=== PATIENT | male | born 1970 | race Caucasian/White ===

== ENCOUNTER 2021-08-24 10:26 | Emergency (ER) | payer MEDICARE, OTHER, SELFPAY ==
--- NOTE | ~2021-08-24 | CT_ITS ---
EXAMINATION: CT HEAD WITHOUT CONTRAST CT CERVICAL SPINE WITHOUT CONTRAST CLINICAL INFORMATION: Head trauma. Seizure. Syncope. COMPARISON: None TECHNIQUE: Contiguous axial imaging was performed from the skull base to vertex without intravenous administration of contrast. Contiguous axial CT images of the cervical spine were obtained without contrast. Sagittal and coronal reformats were provided and reviewed. This CT examination was performed using dose optimization techniques as appropriate, variously including the following: *Automated exposure control *Adjustment of mA and/or kV according to patient size (this includes techniques or standardized protocols for targeted exams where dose is matched to indication/reason for exam; i.e. extremities or head) *Use of iterative reconstruction technique DLP: 1427 mGy-cm FINDINGS: HEAD: There is no evidence of acute intracranial hemorrhage or territorial infarction. No abnormal mass effect or midline shift is seen. Aguilar to white matter differentiation is well preserved. No extra-axial fluid collections are identified. The ventricles are normal in size. There is no abnormal attenuation within the brain parenchyma. Multiple periapical lucencies seen at the maxilla, consistent with periapical abscesses. Otherwise, the visualized osseous structures and soft tissues are unremarkable. The mastoid air cells and visualized portions of the paranasal sinuses are well aerated. CERVICAL SPINE: Straightening of the normal cervical lordosis, which is likely positional. No acute fracture or subluxation. No loss of vertebral body height. Mild loss of intervertebral disc height with anterior endplate osteophytes at C5-C6 and C6-C7. Mild multilevel bilateral facet arthropathy. No lytic or blastic osseous lesion. Unremarkable prevertebral soft tissues. No abnormal soft tissue mass or fluid collection. Thyroid within normal limits. Visualized lung apices are clear. Mild bilateral neural foraminal stenosis at C6-C7. CT/CT cervical spine wo con IMPRESSION: HEAD: No acute intracranial hemorrhage or mass effect. Multiple periapical dental abscesses along the maxilla. CERVICAL SPINE: No acute fracture or subluxation. Degenerative disc disease at C5-C6 and C6-C7 with bilateral neural foraminal stenosis at C6-C7.
[2021-08-24 10:46] VITALS: BP 105/75; PULSE 88; RESP 16; TEMP 36.8; O2SAT 96; BMI 25.8
--- NOTE | 2021-08-24 11:27 | ED.FALL ---
HPI - Fall General Chief Complaint: Fall Stated Complaint: FALL,HIT HEAD,? SZ PER POLICE ON SCENE Time Seen by Provider: 08/24/21 11:27 Source: patient Mode of arrival: EMS Limitations: no limitations History of Present Illness HPI Narrative: Patient found on ground with possible seizure. Patient states he does not drink alcohol. He denies seizure history. Patient states he went to lie down, not sure how he got his facial injuries Onset (ago): minute(s) Fall witnessed: yes, by bystander Place fall occurred: street Loss of consciousness: yes Symptoms prior to fall: lightheadedness Location of injury: head and face Related Data Home Medications Medication Instructions Recorded Confirmed No Known Home Meds 08/24/21 08/24/21 Allergies Allergy/AdvReac Type Severity Reaction Status Date / Time paliperidone [From Invega] AdvReac Mild Agitated Verified 08/24/21 11:32 ziprasidone [From Geodon] AdvReac Mild Agitated Verified 08/24/21 11:32 Review of Systems Constitutional: Constitutional: Reports no additional constitutional complaints Eyes: Eyes: Reports no additional eye complaints ENT: Denies dizziness Cardiovascular: Cardiovascular: Reports no additional cardiovascular complaints Respiratory: Respiratory: Reports as per HPI Gastrointestinal: Gastrointestinal: Reports no additional gastrointestinal complaints Musculoskeletal: Musculoskeletal: Reports no additional musculoskeletal complaints Integumentary/Breasts: Skin/Breast: Denies rash Neurologic: Denies dizziness and Denies Sensory deficit (Neuro) Psychiatric: Psychiatric: Denies anxiety [facility] Social History Social History Alcohol intake: current Advance Directives: No Physical Exam Vital Signs: Vital Signs: Last Vital Signs Temp 98.3 F 08/24/21 10:46 Pulse 88 08/24/21 10:46 Resp 16 08/24/21 10:46 BP 105/75 08/24/21 10:46 Pulse Ox 96 08/24/21 10:46 Body Mass Index 25.8 Const: Other: slightly unkept, abrasions to face and head, small occipital hematoma Nutritional Appearance: average body habitus Orientation/consciousness: oriented to person and patient oriented x3 Limitations: no limitations HENMT: Head: Yes normal to inspection Ears: external ears normal General nose exam: Normal external nose present Mouth: Normal oral and palatal mucosa present and oropharynx normal Throat: Yes posterior oropharynx normal Eyes: General: appearance normal, both eyes and all related structures Neck: Other: supple Neck: Yes normal visual inspection Chest: Chest palpation & inspection: normal inspection of the chest Resp: Auscultation: clear to auscultation bilaterally Cardio: Jugular venous distension: no JVD Rate: regular rate Rhythm: regular rhythm Heart sounds: S1 normal heart sound present and S2 normal heart sound present GI: Inspection: Yes normal to inspection Palpation (GI): Soft to palpation, nontender and No hepatosplenomegaly present Auscultation: normal bowel sounds : General: Yes no CVA tenderness Back/Spine/Pelvis: Back: no CVA tenderness Skin: General skin exam: no rashes or lesions noted Neuro: General: oriented to person and patient oriented x3 Cranial nerves: Yes CN's II-XII intact bilaterally Motor exam (neuro): 5/5 motor strength present throughout Sensory Exam: No Sensory deficit (Neuro) Extrem: General: Yes normal to inspection Psych: Appearance: grossly normal Course Reevaluation(s) Reevaluation #1: no further seizure activity, likely first time seizure will not start on seizure medication at this time Time: 13:41 - Fall Lab Data Result diagrams: 08/24/21 12:04 08/24/21 12:04 Labs: Lab Results 08/24/21 08/24/21 08/24/21 Range/Units 12:04 12:04 12:04 WBC 8.7 (4.8-10.8) X10*3/uL RBC 4.98 (4.60-5.80) X10*6/uL Hgb 16.8 (14.0-18.0) g/dl Hct 47.2 (42-52) % MCV 94.8 (80-98) fL MCH 33.7 H (27.0-33.0) pg MCHC 35.6 (31.0-36.0) g/dl RDW 15.2 (11.0-16.0) % Plt Count 157 L (160-400) X10*3/uL MPV 11.4 (9.4-12.4) fL Immature Gran % (Auto) 0.5 H (0.0-0.4) % Neut % (Auto) 78.2 H (45-73) % Lymph % (Auto) 10.9 L (20-40) % [place] % (Auto) 8.9 (2-11) % Eos % (Auto) 0.6 (0-4) % Baso % (Auto) 0.9 (0-2) % Lymph # (Auto) 1.0 L (1.2-4.9) X10*3/uL [place] # (Auto) 0.8 (0.1-1.2) X10*3/uL Eos # (Auto) 0.1 (0.0-0.4) X10*3/uL Baso # (Auto) 0.1 (0.0-0.2) X10*3/uL Abs Immat Gran (auto) 0.04 H (0.00-0.03) X10*3/uL Absolute Neuts (auto) 6.8 (2.0-8.3) X10*3/uL Absolute Nucleated RBC 0.000 (0.0-0.012) X10*3/uL Nucleated RBC % (auto) 0.0 (0.0-0.2) /100WBC Sodium 133 L (135-145) mmol/L Potassium 3.9 (3.3-5.1) mmol/L Chloride 98 (96-108) mmol/L Carbon Dioxide 25 (22-29) mmol/L Anion Gap 14 (12-20) BUN 10 (9-16) mg/dL Creatinine 1.15 (0.5-1.4) mg/dL Estim Creat Clear Calc 77.5 Estimated GFR > 60 Random Glucose 107 (60-115) mg/dL Calcium 9.6 (8.4-10.2) mg/dL Total Bilirubin 1.1 H (0.0-1.0) mg/dL Direct Bilirubin 0.5 (0.0-0.5) mg/dL AST 37 (5-37) U/L ALT 25 (0-40) U/L Alkaline Phosphatase 89 (39-117) U/L Troponin I High Sens 4.6 (<3.5-35.0) ng/L Total Protein 6.9 (6.5-8.0) g/dL Albumin 4.0 (3.5-5.0) g/dL Ethyl Alcohol mg/dL 08/24/21 Range/Units 12:04 WBC (4.8-10.8) X10*3/uL RBC (4.60-5.80) X10*6/uL Hgb (14.0-18.0) g/dl Hct (42-52) % MCV (80-98) fL MCH (27.0-33.0) pg MCHC (31.0-36.0) g/dl RDW (11.0-16.0) % Plt Count (160-400) X10*3/uL MPV (9.4-12.4) fL Immature Gran % (Auto) (0.0-0.4) % Neut % (Auto) (45-73) % Lymph % (Auto) (20-40) % [place] % (Auto) (2-11) % Eos % (Auto) (0-4) % Baso % (Auto) (0-2) % Lymph # (Auto) (1.2-4.9) X10*3/uL [place] # (Auto) (0.1-1.2) X10*3/uL Eos # (Auto) (0.0-0.4) X10*3/uL Baso # (Auto) (0.0-0.2) X10*3/uL Abs Immat Gran (auto) (0.00-0.03) X10*3/uL Absolute Neuts (auto) (2.0-8.3) X10*3/uL Absolute Nucleated RBC (0.0-0.012) X10*3/uL Nucleated RBC % (auto) (0.0-0.2) /100WBC Sodium (135-145) mmol/L Potassium (3.3-5.1) mmol/L Chloride (96-108) mmol/L Carbon Dioxide (22-29) mmol/L Anion Gap (12-20) BUN (9-16) mg/dL Creatinine (0.5-1.4) mg/dL Estim Creat Clear Calc Estimated GFR Random Glucose (60-115) mg/dL Calcium (8.4-10.2) mg/dL Total Bilirubin (0.0-1.0) mg/dL Direct Bilirubin (0.0-0.5) mg/dL AST (5-37) U/L ALT (0-40) U/L Alkaline Phosphatase (39-117) U/L Troponin I High Sens (<3.5-35.0) ng/L Total Protein (6.5-8.0) g/dL Albumin (3.5-5.0) g/dL Ethyl Alcohol < 10 mg/dL Imaging Data CT scan - head: Radiologist's impression: IMPRESSION: HEAD: No acute intracranial hemorrhage or mass effect. Multiple periapical dental abscesses along the maxilla. ? CERVICAL SPINE: No acute fracture or subluxation. Degenerative disc disease at C5-C6 and C6-C7 with bilateral neural foraminal stenosis at C6-C7. cerical CT: Radiologist's impression: IMPRESSION: HEAD: No acute intracranial hemorrhage or mass effect. Multiple periapical dental abscesses along the maxilla. ? CERVICAL SPINE: No acute fracture or subluxation. Degenerative disc disease at C5-C6 and C6-C7 with bilateral neural foraminal stenosis at C6-C7. Discharge Plan Discharge Clinical Impression: Seizure Patient Disposition: Home, Self-Care Instructions: New-Onset Seizure in Adults (ED) Prescriptions: No Action No Known Home Meds RF: 0 Referrals: Physician,None [Primary Care Provider] - 1 week
--- NOTE | 2021-08-24 11:32 | ECG_ITS ---
Test Reason : FALL Blood Pressure : / mmHG Vent. Rate : 078 BPM Atrial Rate : 078 BPM P-R Int : 136 ms QRS Dur : 086 ms QT Int : 396 ms P-R-T Axes : 022 -50 039 degrees QTc Int : 451 ms Normal sinus rhythm Left anterior fascicular block Abnormal ECG No previous ECGs available Referred By: David Valenzuela Electronically Signed By:VAUGHN LYNCH
[2021-08-24 12:09] LABS: MANUAL DIFF FLAG NO
[2021-08-24 12:11] LABS: Basophils Absolute Auto 0.1 X10*3/uL (0.0-0.2); Basophils Percent Auto 0.9 % (0-2); Eosinophils Absolute Auto 0.1 X10*3/uL (0.0-0.4); Eosinophils Percent Auto 0.6 % (0-4); Hematocrit 47.2 % (42-52); Hemoglobin 16.8 g/dl (14.0-18.0); Imm Gran Abs Auto 0.04 X10*3/uL (0.00-0.03); Imm Gran Pct Auto 0.5 % (0.0-0.4); Lymphocytes Percent Auto 10.9 % (20-40); Mean Corpuscular HGB Conc 35.6 g/dl (31.0-36.0); Mean Corpuscular Hemoglobin 33.7 pg (27.0-33.0); Mean Corpuscular Volume 94.8 fL (80-98); Mean Platelet Volume 11.4 fL (9.4-12.4); Monocytes Absolute Auto 0.8 X10*3/uL (0.1-1.2); Monocytes Percent Auto 8.9 % (2-11); Neutrophils Absolute Auto 6.8 X10*3/uL (2.0-8.3); Neutrophils Percent Auto 78.2 % (45-73); Platelet Count 157 X10*3/uL (160-400); Red Blood Count 4.98 X10*6/uL (4.60-5.80); Red Cell Distribution Width 15.2 % (11.0-16.0); White Blood Count 8.7 X10*3/uL (4.8-10.8)
[2021-08-24 12:28] LABS: Alanine Aminotransferase 25 U/L (0-40); Alkaline Phosphatase 89 U/L (39-117); Anion Gap 14 (12-20); Aspartate Amino Transferase 37 U/L (5-37); Bilirubin Direct 0.5 mg/dL (0.0-0.5); Bilirubin Total 1.1 mg/dL (0.0-1.0); Blood Urea Nitrogen 10 mg/dL (9-16); Calcium 9.6 mg/dL (8.4-10.2); Carbon Dioxide 25 mmol/L (22-29); Chloride 98 mmol/L (96-108); Creatinine Clr Calc Pharmacy 77.5; Estimated Glomerular Filt Rate > 60; Glucose Random 107 mg/dL (60-115); Potassium 3.9 mmol/L (3.3-5.1); Sodium 133 mmol/L (135-145); Total Protein 6.9 g/dL (6.5-8.0)
[2021-08-24 12:29] LABS: Ethanol < 10 mg/dL
[2021-08-24 12:33] LABS: Troponin-I High Sensitivity 4.6 ng/L (<3.5-35.0)
--- NOTE | 2021-08-24 13:15 | PHA.MEDREC ---
Pharmacy Consult ? Medication Reconciliation Pharmacy has completed the medication reconciliation. Patient reports taking no medication prescription or OTC. Radha Kimbrough, AideD
[2021-08-24] MEDS: Bacitracin Oint 14 GM TUBE 1 APPL TOPICAL (14:08)
== END 2021-08-24 14:09 | disposition home or self-care (01) ==
PROVIDERS: Emergency Provider Emergency Medicine
DX: R56.9 Unspecified convulsions (principal)
CPT/HCPCS: 36415; 70450; 72125; 80048; 80076; 82077; 84484; 85025; 93005; 99284

== ENCOUNTER 2022-02-28 20:46 | Emergency (ER) | payer MEDICARE, OTHER, SELFPAY ==
--- NOTE | ~2022-02-28 | CT_ITS ---
EXAMINATION: CT HEAD WITHOUT CONTRAST CT CERVICAL SPINE WITHOUT CONTRAST CLINICAL INFORMATION: c EtOH. Fall. Loss of consciousness. COMPARISON: None. TECHNIQUE: Multidetector CT imaging of the head and cervical spine was performed without the use of intravenous contrast. Multiplanar reformats are reviewed. This CT examination was performed using dose optimization techniques as appropriate, variously including the following: *Automated exposure control *Adjustment of mA and/or kV according to patient size (this includes techniques or standardized protocols for targeted exams where dose is matched to indication/reason for exam; i.e. extremities or head) *Use of iterative reconstruction technique DLP: 1240 mGy-cm. FINDINGS: There is no evidence of acute intracranial hemorrhage or territorial infarction. No abnormal mass effect or midline shift is seen. Aguilar to white matter differentiation is well preserved. No extra-axial fluid collections are identified. The ventricles are normal in size. There is no abnormal attenuation within the brain parenchyma. Right frontal scalp abrasion soft tissue swelling. Underlying calvarium intact. The mastoid air cells and visualized portions of the paranasal sinuses are well-aerated. Atlantooccipital alignment is maintained. The vertebral bodies and posterior elements align normally. No acute fracture or subluxation. Vertebral body heights are maintained. Small endplate osteophytes present C5-C6, 6 7 The paraspinal soft tissues are unremarkable. The imaged lung apices are clear CT/CT cervical spine wo con IMPRESSION: No acute intracranial pathology. No cervical spine fracture or malalignment.
--- NOTE | ~2022-02-28 | CT_ITS ---
EXAMINATION: CT HEAD WITHOUT CONTRAST CT CERVICAL SPINE WITHOUT CONTRAST CLINICAL INFORMATION: c EtOH. Fall. Loss of consciousness. COMPARISON: None. TECHNIQUE: Multidetector CT imaging of the head and cervical spine was performed without the use of intravenous contrast. Multiplanar reformats are reviewed. This CT examination was performed using dose optimization techniques as appropriate, variously including the following: *Automated exposure control *Adjustment of mA and/or kV according to patient size (this includes techniques or standardized protocols for targeted exams where dose is matched to indication/reason for exam; i.e. extremities or head) *Use of iterative reconstruction technique DLP: 1240 mGy-cm. FINDINGS: There is no evidence of acute intracranial hemorrhage or territorial infarction. No abnormal mass effect or midline shift is seen. Aguilar to white matter differentiation is well preserved. No extra-axial fluid collections are identified. The ventricles are normal in size. There is no abnormal attenuation within the brain parenchyma. Right frontal scalp abrasion soft tissue swelling. Underlying calvarium intact. The mastoid air cells and visualized portions of the paranasal sinuses are well-aerated. Atlantooccipital alignment is maintained. The vertebral bodies and posterior elements align normally. No acute fracture or subluxation. Vertebral body heights are maintained. Small endplate osteophytes present C5-C6, 6 7 The paraspinal soft tissues are unremarkable. The imaged lung apices are clear CT/CT head/brain wo con IMPRESSION: No acute intracranial pathology. No cervical spine fracture or malalignment.
--- NOTE | ~2022-02-28 | XR_ITS ---
EXAMINATION: XR HAND, RIGHT CLINICAL INFORMATION: Laceration thenar eminence. COMPARISON: None TECHNIQUE: PA, lateral, and oblique views of the right hand. FINDINGS: Soft tissue laceration of the thenar eminence. There are are multiple faint tiny radiopacities along the skin surface of the laceration, image #3. No fracture. No dislocation. Normal joint spaces. XR/XR hand RT min 3V IMPRESSION: Soft tissue laceration of the thenar eminence. There are are multiple faint tiny radiopacities along the skin surface of the laceration, image #3.
[2022-02-28 20:51] VITALS: BP 112/70; PULSE 73; RESP 20; TEMP 36.8; O2SAT 98
[2022-02-28 20:59] VITALS: BP 112/70; BP 130/90; PULSE 100; PULSE 76; RESP 16; TEMP 36.8; O2SAT 91; O2SAT 97; BMI 25.8
--- NOTE | 2022-02-28 21:01 | ED.FALL ---
HPI - Fall General Chief Complaint: ETOH/Substance Use Stated Complaint: etoh and head strike and hand lac Time Seen by Provider: 02/28/22 20:58 Source: patient and EMS Mode of arrival: EMS Limitations: no limitations History of Present Illness HPI Narrative: 51-year-old male who admits to drinking 1 pt of vodka this evening who was found on the ground behind a dumpster by bystanders. The patient was awake but could not recount what happened. Patient did appear to be intoxicated. Paramedics found the patient to be awake and alert with a abrasions to his chin and right forehead and a laceration to his right hand. Patient states that he was recently diagnosed with diabetes but is not on any medications. Patient's point of care glucose was 60 and the paramedics did give him glucose prior to transport. The patient states that he does have a headache , neck pain and right hand pain but otherwise has no complaints. He denied being ill in any way prior to falling. He states that he is currently living in a [place] [address] skilled nursing and was previously homeless. Patient has not been vaccinated for COVID-19. complaint: fall Onset (ago): hour(s) (1) Fall from: standing Fall witnessed: no Place fall occurred: street Loss of consciousness: yes Length of LOC: second(s) (30) Prolonged down time: no Symptoms prior to fall: none Context: alcohol use Location of injury: head, face, neck and other (Laceration right hand) Severity: severe Severity scale (1-10): 10 Quality: sharp and stabbing Associated symptoms (after fall): headache, neck pain and other (Right hand pain) Related Data Home Medications Medication Instructions Recorded Confirmed No Known Home Meds 08/24/21 08/24/21 Allergies Allergy/AdvReac Type Severity Reaction Status Date / Time paliperidone [From Invega] AdvReac Mild Agitated Verified 08/24/21 11:32 ziprasidone [From Geodon] AdvReac Mild Agitated Verified 08/24/21 11:32 Review of Systems Review of Systems: Yes all other systems are reviewed and are negative [facility] Past Medical History [facility] Narrative: Past medical history: Diabetes mellitus, hypertension, hyperlipidemia, alcohol abuse. Past surgical history: None. Social history: Patient states he is homeless but is currently staying in a skilled nursing. He smokes 1 pack of cigarettes per day times 39 years. He drinks 3 to 4 times a week and he states that he drinks at least a pt of vodka when he drinks. Mid to drinking this evening. Social History Social History Alcohol intake: current Advance Directives: No Advance Directives Information Provided: No Physical Exam Vital Signs: Vital Signs: Last Vital Signs Temp 98.3 F 02/28/22 20:59 Pulse 81 03/01/22 06:14 Resp 18 03/01/22 06:14 BP 123/75 03/01/22 06:14 Pulse Ox 96 03/01/22 06:14 BMI result Body Mass Index 25.8 Const: Other: Awake, alert, male patient, pleasant and cooperative, does have a strong odor of alcohol on his breath, patient has an abrasion to his right forehead which was wrapped in gauze by the paramedics, he also has an abrasion to his chin. Patient answers all questions appropriately. The patient's clothes are on clean and covered in dirt, the patient's skin is also covered in dirt. HEENT: Other: Patient has an abrasion to his right forehead which does not require suture repair, he also has an abrasion to his chin she does not require suture repair Ears: external ears normal General nose exam: Normal external nose present Face and sinus: Yes normal facial exam Mouth: Normal oral and palatal mucosa present Throat: Yes posterior oropharynx normal Eyes: General: appearance normal, both eyes and all related structures Pupils: Equal, round and reactive pupils present Neck: Other: Tenderness to palpation of his cervical spine and trapezius muscles bilaterally Chest: Chest palpation & inspection: normal inspection of the chest and normal palpation of entire chest wall Resp: Effort & Inspection: normal respiratory effort and able to speak in complete sentences Auscultation: clear to auscultation bilaterally Cardio: Rate: regular rate Rhythm: regular rhythm Heart sounds: S1 normal heart sound present, S2 normal heart sound present and no murmurs GI: Inspection: Yes normal to inspection Palpation (GI): Soft to palpation, nontender and no guarding Auscultation: normal bowel sounds : General: Yes no CVA tenderness Back/Spine/Pelvis: Back: no CVA tenderness Skin: General skin exam: no rashes or lesions noted Neuro: Cranial nerves: Yes CN's II-XII intact bilaterally and Yes Equal, round and reactive pupils present Cognition (Neuro): normal cognition Motor exam (neuro): 5/5 motor strength present throughout Extrem: Other: 4.0 cm laceration to the right thenar eminence, the skin surrounding the area is very dirty and the the laceration is irregular with area of devaculated skin that it skin, the wound is deep in his into the muscle layer of the thenar eminence Patient has full range of motion and normal strength and sensory exam. Normal opponents of the thumb and 5th finger, normal strength thumb and index finger (okay sign). There is also an abrasion medial to the thenar eminence. This photo was taken after the dirt was removed from the patient's hand. General: Yes normal to inspection Psych: Appearance: grossly normal Speech and movement: Normal speech and movement present Affect: Other affect and mood findings present (Intoxicated) Attitude: cooperative Thought process: Normal thought process present Thought content: Normal thought content present Course Course Course Narrative: 51-year-old male who presents to emergency department for evaluation of an unwitnessed fall with head inch in abrasions and laceration to his right hand, the patient does admit to drinking alcohol this evening he does appear to be intoxicated. He is very pleasant and cooperative. I did order CT scan of the head and C-spine, x-ray of his right hand and a laboratory evaluation. I also ordered to get normal saline x1 L. 0002: Laboratory evaluation: CBC, CMP, PT/INR, PTT, lipase were all normal. COVID-19 was negative. Blood alcohol level was elevated at 275. Radiology evaluation: CT scan of the head and cervical spine were interpreted by the radiologist as no acute intracranial pathology. No cervical spine fracture or malalignment. Given the patient's alcohol level of 275, the patient will need 7 hours of observation until his alcohol level was below 100. Therefore he will be placed in physician observation and if he remains stable he can be discharged when sober. 0002: Physician observation started at 0002. Patient placed in physician observation because the patient needed more time to become sober enough be discharged. At the time observation was started the patient's vitals were stable, patient is alert and oriented cooperative, Neuro: nonfocal, CV RRR, Lungs clear. Procedures Procedure Narrative Procedure Narrative: 4.0 cm Right hand/thenar eminence laceration repair The patient gave me informed verbal consent to proceed. The laceration was 4.0 cm, irregular and deep into the muscle layer located over the right thenar eminence, there was devascularized skin that resected and removed using scissors. The wound was explored, there is no foreign body found in the wound to the best my ability. The wound was then irrigated using normal saline, 500 cc was used. The skin margins were undermined to help the healing process. The wound was then closed in 1 layer using 3.0 nylon sutures. Total of 10 sutures were used to close the wound. The patient tolerated the procedure well. - Fall Lab Data Result diagrams: 02/28/22 21:49 02/28/22 21:49 Labs: Lab Results 02/28/22 02/28/22 02/28/22 Range/Units 21:49 21:49 21:49 WBC 6.4 (4.8-10.8) X10*3/uL RBC 4.61 (4.60-5.80) X10*6/uL Hgb 15.7 (14.0-18.0) g/dl Hct 45.4 (42.0-52.0) % MCV 98.5 H (80.0-98.0) fL MCH 34.1 H (27.0-33.0) pg MCHC 34.6 (31.0-36.0) g/dl RDW 14.5 (11.0-16.0) % Plt Count 165 (160-400) X10*3/uL MPV 9.9 (9.4-12.4) fL Immature Gran % (Auto) 0.2 (0.0-0.4) % Neut % (Auto) 63.9 (45-73) % Lymph % (Auto) 26.5 (20-40) % [place] % (Auto) 7.2 (2-11) % Eos % (Auto) 0.8 (0-4) % Baso % (Auto) 1.4 (0-2) % Lymph # (Auto) 1.7 (1.2-4.9) X10*3/uL [place] # (Auto) 0.5 (0.1-1.2) X10*3/uL Eos # (Auto) 0.1 (0.0-0.4) X10*3/uL Baso # (Auto) 0.1 (0.0-0.2) X10*3/uL Abs Immat Gran (auto) 0.01 (0.00-0.03) X10*3/uL Absolute Neuts (auto) 4.1 (2.0-8.3) x10*3/uL Absolute Nucleated RBC 0.000 (0.0-0.012) X10*3/uL Nucleated RBC % (auto) 0.0 (0.0-0.2) /100WBC PT (9.9-13.0) SEC INR (0.9-1.1) APTT (24.1-38.0) SEC Sodium 141 (135-145) mmol/L Potassium 3.9 (3.3-5.1) mmol/L Chloride 107 (96-108) mmol/L Carbon Dioxide 22 (22-29) mmol/L Anion Gap 16 (12-20) BUN 9 (9-16) mg/dL Creatinine 0.96 (0.5-1.4) mg/dL Estim Creat Clear Calc 92.9 Estimated GFR > 60 Random Glucose 87 (60-115) mg/dL Calcium 8.3 L D (8.4-10.2) mg/dL Total Bilirubin 0.6 (0.0-1.0) mg/dL AST 34 (5-37) U/L ALT 18 (0-40) U/L Alkaline Phosphatase 58 D (39-117) U/L Total Protein 6.6 (6.5-8.0) g/dL Albumin 3.8 (3.5-5.0) g/dL Lipase 29 (8-78) U/L Ethyl Alcohol mg/dL COVID-19 ([facility]) Negative (Negative) COVID-19 Clin Com See Note 02/28/22 02/28/22 Range/Units 21:49 21:49 WBC (4.8-10.8) X10*3/uL RBC (4.60-5.80) X10*6/uL Hgb (14.0-18.0) g/dl Hct (42.0-52.0) % MCV (80.0-98.0) fL MCH (27.0-33.0) pg MCHC (31.0-36.0) g/dl RDW (11.0-16.0) % Plt Count (160-400) X10*3/uL MPV (9.4-12.4) fL Immature Gran % (Auto) (0.0-0.4) % Neut % (Auto) (45-73) % Lymph % (Auto) (20-40) % [place] % (Auto) (2-11) % Eos % (Auto) (0-4) % Baso % (Auto) (0-2) % Lymph # (Auto) (1.2-4.9) X10*3/uL [place] # (Auto) (0.1-1.2) X10*3/uL Eos # (Auto) (0.0-0.4) X10*3/uL Baso # (Auto) (0.0-0.2) X10*3/uL Abs Immat Gran (auto) (0.00-0.03) X10*3/uL Absolute Neuts (auto) (2.0-8.3) x10*3/uL Absolute Nucleated RBC (0.0-0.012) X10*3/uL Nucleated RBC % (auto) (0.0-0.2) /100WBC PT 11.1 (9.9-13.0) SEC INR 1.0 (0.9-1.1) APTT 35.7 (24.1-38.0) SEC Sodium (135-145) mmol/L Potassium (3.3-5.1) mmol/L Chloride (96-108) mmol/L Carbon Dioxide (22-29) mmol/L Anion Gap (12-20) BUN (9-16) mg/dL Creatinine (0.5-1.4) mg/dL Estim Creat Clear Calc Estimated GFR Random Glucose (60-115) mg/dL Calcium (8.4-10.2) mg/dL Total Bilirubin (0.0-1.0) mg/dL AST (5-37) U/L ALT (0-40) U/L Alkaline Phosphatase (39-117) U/L Total Protein (6.5-8.0) g/dL Albumin (3.5-5.0) g/dL Lipase (8-78) U/L Ethyl Alcohol 275 mg/dL COVID-19 ([facility]) (Negative) COVID-19 Clin Com Discharge Plan Discharge Clinical Impression: Fall, Alcohol intoxication, Head injury, Laceration of hand, right Patient Disposition: Home, Self-Care Instructions: Head Injury (ED), Laceration (ED) Additional Instructions: The CT scan of your head and neck was unremarkable with no broken bones or bleeding in the brain. The x-ray of your right hand was also unremarkable with no broken bones. Your laboratory evaluation was unremarkable except for an elevated blood alcohol level of 275. Your COVID-19 test was negative. Your right hand was repaired with non dissolve will sutures. The sutures need to be removed in 10-14 days. Apply bacitracin twice a day until the stitches are removed. Follow-up with your doctor in 2 days. Please return to the emergency department if your symptoms get worse or if you develop any symptoms that are concerning to you. Prescriptions: No Action No Known Home Meds 0RF
[2022-02-28] MEDS: 0.9 % Sodium Chloride 1,000 ML 999 ML IV (21:06)
[2022-02-28] MEDS: Lidocaine HCl 1 % MPF 5 ML VIAL INFILTRATI ×2 (22:00)
[2022-02-28 22:04] LABS: MANUAL DIFF FLAG NO
[2022-02-28 22:05] LABS: Basophils Absolute Auto 0.1 X10*3/uL (0.0-0.2); Basophils Percent Auto 1.4 % (0-2); Eosinophils Absolute Auto 0.1 X10*3/uL (0.0-0.4); Eosinophils Percent Auto 0.8 % (0-4); Hematocrit 45.4 % (42.0-52.0); Hemoglobin 15.7 g/dl (14.0-18.0); Imm Gran Abs Auto 0.01 X10*3/uL (0.00-0.03); Imm Gran Pct Auto 0.2 % (0.0-0.4); Lymphocytes Absolute Auto 1.7 X10*3/uL (1.2-4.9); Lymphocytes Percent Auto 26.5 % (20-40); Mean Corpuscular HGB Conc 34.6 g/dl (31.0-36.0); Mean Corpuscular Hemoglobin 34.1 pg (27.0-33.0); Mean Corpuscular Volume 98.5 fL (80.0-98.0); Mean Platelet Volume 9.9 fL (9.4-12.4); Monocytes Absolute Auto 0.5 X10*3/uL (0.1-1.2); Monocytes Percent Auto 7.2 % (2-11); Neutrophils Absolute Auto 4.1 x10*3/uL (2.0-8.3); Neutrophils Percent Auto 63.9 % (45-73); Platelet Count 165 X10*3/uL (160-400); Red Blood Count 4.61 X10*6/uL (4.60-5.80); Red Cell Distribution Width 14.5 % (11.0-16.0); White Blood Count 6.4 X10*3/uL (4.8-10.8)
--- NOTE | 2022-02-28 22:10 | PC.NURSE ---
Cleaned R hand wound from debris and blood with sterile water, covered with a non stick bandage and wrap. Cleaned forehead laceration with sterile water and covered with nonstick bandage and wrap. Cleaned chin laceration with sterile water, no bandage needed. Sponge bathed patient removed shirt and sweatshirt and put pt in hospital gown.
[2022-02-28 22:12] LABS: Prothrombin Time 11.1 SEC (9.9-13.0)
[2022-02-28 22:14] LABS: Partial Thromboplastin Time 35.7 SEC (24.1-38.0)
[2022-02-28 22:20] LABS: Ethanol 275 mg/dL
[2022-02-28 22:24] LABS: COVID-19 Test Negative (Negative); IDNOW Serial# 16C4AD1C
[2022-02-28 22:26] LABS: Alanine Aminotransferase 18 U/L (0-40); Albumin Level 3.8 g/dL (3.5-5.0); Alkaline Phosphatase 58 U/L (39-117); Anion Gap 16 (12-20); Aspartate Amino Transferase 34 U/L (5-37); Bilirubin Total 0.6 mg/dL (0.0-1.0); Blood Urea Nitrogen 9 mg/dL (9-16); Calcium 8.3 mg/dL (8.4-10.2); Carbon Dioxide 22 mmol/L (22-29); Chloride 107 mmol/L (96-108); Creatinine Clr Calc Pharmacy 92.9; Estimated Glomerular Filt Rate > 60; Glucose Random 87 mg/dL (60-115); Lipase 29 U/L (8-78); Potassium 3.9 mmol/L (3.3-5.1); Sodium 141 mmol/L (135-145); Total Protein 6.6 g/dL (6.5-8.0)
[2022-02-28 23:57] VITALS: BP 119/72; PULSE 86; RESP 18; O2SAT 93
[2022-03-01 02:20] VITALS: BP 112/73; PULSE 78; RESP 20; O2SAT 95
[2022-03-01] MEDS: Ibuprofen 600 MG TABLET PO (03:12)
[2022-03-01 04:15] VITALS: BP 100/62; PULSE 73; RESP 18; O2SAT 93
[2022-03-01 06:14] VITALS: BP 123/75; PULSE 81; RESP 18; O2SAT 96
--- NOTE | 2022-03-01 06:38 | PC.NURSE ---
pt a&o, no sob or chest pain. Clean laceration in left and rewrapped. Reviewed infection control and proper cleaning. Reviewed discharge instruction. Pt verbalized understanding.
[2022-03-01] MEDS: Bacitracin Oint 0.9 GM PACKET 1 APPL TOPICAL (07:06)
== END 2022-03-01 07:07 | disposition home or self-care (01) ==
PROVIDERS: Emergency Provider Emergency Medicine Emergency Medical Services
DX: F10.120 Alcohol abuse with intoxication, uncomplicated (principal); Y90.8 Blood alcohol level of 240 mg/100 ml or more; S09.90XA Unspecified injury of head, initial encounter; S61.411A Laceration without foreign body of right hand, initial encounter; S00.81XA Abrasion of other part of head, initial encounter; X58.XXXA Exposure to other specified factors, initial encounter; R51.9 Headache, unspecified; M54.2 Cervicalgia; E11.9 Type 2 diabetes mellitus without complications; I10 Essential (primary) hypertension; E78.5 Hyperlipidemia, unspecified; Z20.822 Contact with and (suspected) exposure to COVID-19; F17.200 Nicotine dependence, unspecified, uncomplicated; Y93.9 Activity, unspecified; Y92.488 Other paved roadways as the place of occurrence of the external cause; Y99.9 Unspecified external cause status
CPT/HCPCS: 12042; 13132; 36415; 70450; 72125; 73130; 80053; 82077; 83690; 85025; 85610; 85730; 87635; 96360; 99284

== ENCOUNTER 2022-03-15 09:51 | Emergency (ER) | payer MEDICARE, OTHER, SELFPAY ==
[2022-03-15 10:34] VITALS: BP 115/80; PULSE 87; RESP 16; TEMP 36.1; O2SAT 97; BMI 25.2
--- NOTE | 2022-03-15 10:55 | ED.WOUNDLAC ---
HPI - Wound/Laceration General Chief Complaint: Wound/Laceration Stated Complaint: Suture removal Time Seen by Provider: 03/15/22 10:55 Source: patient Mode of arrival: ambulatory Limitations: no limitations History of Present Illness HPI narrative: 51-year-old patient who lives in a homeless senior living here with his manager of case management for removal of 10 sutures to his right thenar eminence. Sutures were placed 02/28/2022. They have noticed that there is some redness and swelling around the wound. Related Data Home Medications Medication Instructions Recorded Confirmed No Known Home Meds 08/24/21 08/24/21 Allergies Allergy/AdvReac Type Severity Reaction Status Date / Time paliperidone [From Invega] AdvReac Mild Agitated Verified 08/24/21 11:32 ziprasidone [From Geodon] AdvReac Mild Agitated Verified 08/24/21 11:32 Review of Systems Constitutional: Constitutional: Denies body ache(s), Denies chills, Denies fatigue, Denies fever(s), Denies headache(s), Denies malaise and Denies weakness Eyes: Eyes: Denies diplopia ENT: Denies vertigo, Denies dizziness, Denies headache(s) and Denies throat swelling Cardiovascular: Cardiovascular: Denies chest pain, Denies syncope, Denies leg edema, Denies lightheadedness, Denies Loss of Consciousness, Denies palpitations and Denies dyspnea Respiratory: Respiratory: Denies chest congestion, Denies cough and Denies dyspnea Gastrointestinal: Gastrointestinal: Denies abdominal pain, Denies hematochezia, Denies constipation, Denies diarrhea and Denies vomiting Musculoskeletal: Musculoskeletal: Reports no additional musculoskeletal complaints, Denies arthralgias, Denies joint swelling, Denies limited range of motion, Denies numbness and Denies tingling Integumentary/Breasts: Skin/Breast: Reports wounds Neurologic: Denies confusion, Denies vertigo, Denies dizziness, Denies syncope, Denies headache(s), Denies numbness, Denies tingling and Denies weakness Psychiatric: Psychiatric: Denies anxiety, Denies confusion and Denies depression Endocrine: Endocrine: Denies fatigue and Denies palpitations Allergic/Immunologic: Allergic/Immunologic: Denies throat swelling PMFSH Social History Social History Alcohol intake: current Advance Directives: No Advance Directives Information Provided: No Physical Exam Vital Signs: Vital Signs: Last Vital Signs Temp 96.9 F 03/15/22 10:34 Pulse 87 03/15/22 10:34 Resp 16 03/15/22 10:34 BP 115/80 03/15/22 10:34 Pulse Ox 97 03/15/22 10:34 BMI result Body Mass Index 25.2 Const: General: No confusion Nutritional Appearance: well nourished Orientation/consciousness: No confusion Limitations: no limitations Eyes: Conjunctivae: conjunctivae normal Pupils: Equal, round and reactive pupils present EOM: EOMs intact bilaterally Neck: Neck: Yes full ROM, Yes no lymphadenopathy and Yes supple Resp: Effort & Inspection: normal respiratory effort and able to speak in complete sentences Auscultation: clear to auscultation bilaterally, no crackles, no rales, no rhonchi and no wheezes Cardio: Rate: regular rate Rhythm: regular rhythm Heart sounds: S1 normal heart sound present and S2 normal heart sound present GI: Inspection: Yes normal to inspection Palpation (GI): Soft to palpation, nontender, no guarding and not rigid Percussion: Yes normal to percussion Auscultation: normal bowel sounds Skin: Other: Healing wound with 10 sutures on right palmar thenar eminence, there is crusted scab and surrounding mild erythema and swelling Neuro: General: No confusion Cranial nerves: Yes Equal, round and reactive pupils present Extrem: General: Yes normal to inspection and Yes full ROM Psych: Appearance: grossly normal Affect: normal affect Attitude: cooperative Thought process: Normal thought process present Course Course Course Narrative: 51-year-old male presents for suture removal. Patient had 10 sutures placed in his right thenar eminence 02/28/2022. He is homeless and is here with his case folder from a homeless senior living. On exam, patient is dirty, his hands are dirty, I was able to remove 10 sutures from his right thenar eminence, however the last suture was imbedded, and I hope that I removed it completely. Patient has mild redness and swelling around wound, prescribed Keflex. Counseled patient to return if he had worsening pain, fevers, pus from his hand. Gave instructions for keeping hand clean, wash with soap and water daily, bacitracin, non stick dressing, all questions were answered Discharge Plan Discharge Clinical Impression: Laceration, Cellulitis Patient Disposition: Home, Self-Care Prescriptions: No Action No Known Home Meds 0RF
== END 2022-03-15 11:21 | disposition home or self-care (01) ==
PROVIDERS: Emergency Provider Emergency Medicine
DX: S61.411D Laceration without foreign body of right hand, subsequent encounter (principal); L03.113 Cellulitis of right upper limb; X58.XXXD Exposure to other specified factors, subsequent encounter; Z59.01 Sheltered homelessness
CPT/HCPCS: 99283